=== PATIENT | female | born 1970 | race Caucasian/White ===

== ENCOUNTER → 2019-02-03 | Outpatient (CLI) | payer OTHER ==
[~2019-02-03] MED LIST: BENADRYL ALLERG25 MG PO; CEPHALEXIN 500500 M2 PO; DOXYCYCLINE 10100 MG PO; FLUZONE 2045 MCG/011; NOHOMEMEDICATIONS; NORCO 5-325 TA1 EACH PO; PNEUMOVAX25 MCG/0.5; PREDNISONE 10 M10 MG PO
== END ==
LOC: M.RAD 11:18
DX: Z12.31 Encounter for screening mammogram for malignant neoplasm of breast (principal)

== ENCOUNTER → 2020-06-12 | Outpatient (CLI) | payer OTHER | LOC: M.RAD 09:25 | PROVIDERS: ATTEND Family Medicine | DX: Z12.31 Encounter for screening mammogram for malignant neoplasm of breast (principal) ==

== ENCOUNTER → 2021-08-25 | Outpatient (CLI) | payer OTHER | LOC: M.RAD 09:40 | PROVIDERS: ATTEND Family Medicine | DX: Z12.31 Encounter for screening mammogram for malignant neoplasm of breast (principal) ==